=== PATIENT | male | born 1960 | race African-American/Black ===

== ENCOUNTER 2017-06-17 22:41 | Emergency (ER) | payer OTHER, SELFPAY ==
[2017-06-17 23:44] LABS: #Eosinphils 0.1 thou/uL (0.0-0.7); #Lymphocytes 1.7 thou/uL (1.20-3.40); #Monocytes 0.4 thou/uL (0.11-0.59); #Neutrophils 3.1 thou/uL (1.40-6.50); %Basophils 0.7 % (0.0-1.0); %Eosinophils 2.3 % (0.0-10.0); %Lymphocytes 31.8 % (21.0-51.0); %Monocytes 7.6 % (0.0-10.0); %Neutrophils 57.7 % (42.0-75.0); Hemoglobin 13.6 g/dL (14.0-18.0); Mean Corpuscular Hemoglobin 27.8 pg (27.0-31.0); Mean Corpuscular Volume 89.7 fl (80.0-94.0); Mean Platelet Volume 7.6 fL (7.4-10.4); Platelet Count 320 thou/uL (130-400); RBC Distribution Width 13.2 % (11.5-14.5); Red Blood Cell (RBC) Count 4.88 mill/uL (4.70-6.10); White Blood Cell (WBC) Count 5.4 thou/uL (4.8-10.8)
[2017-06-17 23:52] LABS: INR-International Normal Ratio 1.1; Prothrombin Time 14.2 SEC (12.0-14.7)
--- NOTE | 2017-06-17 23:58 | RAD ---
TWO VIEW CHEST: 06/17/17 HISTORY: Cough and shortness of breath. Heart is mildly enlarged. Dual AICD lead device is noted. There is mild vascular engorgement. No foc al infiltrate and no effusion apparent. IMPRESSION: Heart size is mildly enlarged. No acute lung process. POS: [facility]
[2017-06-18 00:14] LABS: CKMB 2.5 ng/mL (0-6.6)
[2017-06-18 00:24] LABS: ALT (SGPT) 33 U/L (8-55); AST (SGOT) 37 U/L (5-34); Albumin 3.5 g/dL (3.5-5.0); Alkaline Phosphatase 65 U/L (40-150); Anion Gap 15 mmol/L (10-20); BUN (Urea Nitrogen) 34 mg/dL (8.4-25.7); Bilirubin, Total 0.5 mg/dL (0.2-1.2); Calc. Creatinine Clearance 0 mL/min (70-130); Calcium 9.3 mg/dL (7.8-10.44); Carbon Dioxide 24 mmol/L (22-29); Chloride 104 mmol/L (98-107); Estimated GFR-MDRD 43; Globulin 3.2 g/dL (2.4-3.5); Glucose 105 mg/dL (70-105); Potassium 3.6 mmol/L (3.5-5.1); Protein, Total 6.7 g/dL (6.0-8.3); Sodium 139 mmol/L (136-145)
[2017-06-18] MEDS ORDERED: Nitroglycerin 0.4 MG TAB (25 Tab Bottle) ONE (00:27)
[2017-06-18] MEDS ORDERED: Furosemide 40 MG/4 ML VIAL ONE (00:27)
[2017-06-18] MEDS ORDERED: hydrALAZINE 20 MG/ML VIAL ONE (02:58)
[2017-06-18] MEDS ORDERED: Nitroglycerin 2% Ointment 1 INCH/1 GM Packet ONE (05:06)
== END 2017-06-18 05:55 | disposition short-term general hospital (02) ==
LOC: ERS 22:41
DX: I11.0 Hypertensive heart disease with heart failure (principal); I50.9 Heart failure, unspecified; Z79.899 Other long term (current) drug therapy
CPT/HCPCS: 71046; 80053; 82553; 83880; 84484; 85025; 85610; 93005; 96374; 96375; J0360; J1940

== ENCOUNTER 2017-07-04 11:00 | Emergency (ER) | payer OTHER ==
[2017-07-04 12:14] LABS: Bacteria/HPF None Seen HPF (None Seen); Bilirubin Negative (Negative); Blood, Urine Large (Negative); Clarity CLOUDY (Clear); Glucose, Urine (Dipstick) Negative (Negative); Hyaline Casts/LPF 0-3 HYALINE CAST LPF (0-3 Hyaline); Leukocyte Moderate (Negative); Nitrite Negative (Negative); Pathc Cast-AUWi Flag 0.14 (0-2.49); Protein, Urine (Dipstick) 100 mg/dL (Neg-Trace); RBC/HPF GREATER THAN 50-TNTC HPF (0-3); Specific Gravity, Urine 1.022 (1.002-1.036); Squamous Epithelial None Seen HPF (0-3)
[2017-07-04] MEDS ORDERED: cefTRIAXone\\ROCEPHIN 1 GM VIAL IM ONE (13:30)
[2017-07-04] MEDS ORDERED: Lidocaine 1% PF 5 ML VIAL ONE (13:33)
== END 2017-07-04 14:06 | disposition home or self-care (01) ==
LOC: ERS 11:00
DX: N39.0 Urinary tract infection, site not specified (principal); I11.0 Hypertensive heart disease with heart failure; I50.9 Heart failure, unspecified; Z79.899 Other long term (current) drug therapy
CPT/HCPCS: 81003; 81015; 87077; 87086; 87186; 96372; J0696; J2001

== ENCOUNTER 2017-09-21 10:46 | Emergency (ER) | payer OTHER ==
[2017-09-21 11:25] LABS: #Basophils 0.1 thou/uL (0.0-0.2); #Eosinphils 0.1 thou/uL (0.0-0.7); #Lymphocytes 1.5 thou/uL (1.20-3.40); #Monocytes 0.4 thou/uL (0.11-0.59); #Neutrophils 2.5 thou/uL (1.40-6.50); %Basophils 1.4 % (0.0-1.0); %Eosinophils 1.9 % (0.0-10.0); %Monocytes 9.3 % (0.0-10.0); %Neutrophils 54.5 % (42.0-75.0); Hemoglobin 15.1 g/dL (14.0-18.0); Mean Corpuscular HGB CONC 34.6 g/dL (32.0-36.0); Mean Corpuscular Hemoglobin 29.6 pg (27.0-31.0); Mean Corpuscular Volume 85.6 fl (80.0-94.0); Mean Platelet Volume 8.3 fL (7.4-10.4); Platelet Count 212 thou/uL (130-400); White Blood Cell (WBC) Count 4.7 thou/uL (4.8-10.8)
--- NOTE | 2017-09-21 11:44 | RAD ---
CHEST: Date: 09/21/17 PROVIDED CLINICAL HISTORY: Possible defibrillator firing and chest pain. FINDINGS: Comparison with 06/17/17. Cardiac silhouette remains enlarged. Left subclavian cardiac pacing device is again noted with lead t ips in expected locations of RA and RV. No focal consolidation, pleural fluid, or pneumothorax appare nt. IMPRESSION: Cardiomegaly without evidence for an acute cardiopulmonary process. POS: [facility]
[2017-09-21 11:57] LABS: ALT (SGPT) 15 U/L (8-55); AST (SGOT) 20 U/L (5-34); Albumin 3.8 g/dL (3.5-5.0); Alkaline Phosphatase 41 U/L (40-150); Anion Gap 13 mmol/L (10-20); BUN (Urea Nitrogen) 28 mg/dL (8.4-25.7); Bilirubin, Total 0.7 mg/dL (0.2-1.2); CK (CPK) 161 U/L (30-200); Calc. Creatinine Clearance 0 mL/min (70-130); Calcium 9.1 mg/dL (7.8-10.44); Carbon Dioxide 20 mmol/L (22-29); Chloride 106 mmol/L (98-107); Estimated GFR-MDRD 71; Globulin 3.5 g/dL (2.4-3.5); Glucose 106 mg/dL (70-105); Potassium 4.3 mmol/L (3.5-5.1); Protein, Total 7.3 g/dL (6.0-8.3); Sodium 135 mmol/L (136-145)
[2017-09-21 11:59] LABS: CKMB 3.3 ng/mL (0-6.6); Troponin I 0.028 ng/mL (< 0.028)
[2017-09-21] MEDS ORDERED: Lisinopril 10 MG TAB ONE (12:49)
[2017-09-21 15:53] LABS: CKMB 3.8 ng/mL (0-6.6); Troponin I 0.045 ng/mL (< 0.028)
== END 2017-09-21 16:56 | disposition short-term general hospital (02) ==
LOC: ERS 10:46
DX: I47.2 Ventricular tachycardia (principal); I11.0 Hypertensive heart disease with heart failure; I50.9 Heart failure, unspecified; Z79.899 Other long term (current) drug therapy
CPT/HCPCS: 36415; 71045; 80053; 82550; 82553; 84484; 85025; 93005

== ENCOUNTER 2018-06-11 13:01 | Emergency (ER) | payer OTHER, SELFPAY ==
[2018-06-11] MEDS ORDERED: Lidocaine 1% w/Epinephrine 1:100K 20 ML VIAL ONE (13:41)
== END 2018-06-11 14:05 | disposition home or self-care (01) ==
LOC: ERS 13:01
DX: L72.3 Sebaceous cyst (principal); I11.0 Hypertensive heart disease with heart failure; I50.9 Heart failure, unspecified
CPT/HCPCS: 10061; J2001

== ENCOUNTER 2019-05-07 06:54 | Inpatient (IN) | payer OTHER ==
[2019-05-07 07:23] LABS: #Eosinphils 0.1 thou/uL (0.0-0.7); #Lymphocytes 0.9 thou/uL (1.20-3.40); #Monocytes 0.4 thou/uL (0.11-0.59); #Neutrophils 2.7 thou/uL (1.40-6.50); %Basophils 0.5 % (0.0-1.0); %Eosinophils 1.3 % (0.0-10.0); %Lymphocytes 22.7 % (21.0-51.0); %Monocytes 9.2 % (0.0-10.0); %Neutrophils 66.3 % (42.0-75.0); Hemoglobin 13.2 g/dL (14.0-18.0); Mean Corpuscular HGB CONC 31.6 g/dL (32.0-36.0); Mean Corpuscular Hemoglobin 27.6 pg (27.0-31.0); Mean Corpuscular Volume 87.3 fL (78.0-98.0); Mean Platelet Volume 8.2 fL (7.4-10.4); Platelet Count 284 thou/uL (130-400); RBC Distribution Width 14.3 % (11.5-14.5); Red Blood Cell (RBC) Count 4.78 mill/uL (4.70-6.10); White Blood Cell (WBC) Count 4.1 thou/uL (4.8-10.8)
[2019-05-07] MEDS ORDERED: Nitroglycerin 0.4 MG TAB 1 EACH ONE ×2 (07:32→09:31)
[2019-05-07 07:38] LABS: ALT (SGPT) 22 U/L (8-55); AST (SGOT) 24 U/L (5-34); Albumin 3.6 g/dL (3.5-5.0); Alkaline Phosphatase 54 U/L (40-110); Anion Gap 13 mmol/L (10-20); BUN (Urea Nitrogen) 31 mg/dL (8.4-25.7); Bilirubin, Total 0.9 mg/dL (0.2-1.2); Calc. Creatinine Clearance 0 mL/min (70-130); Carbon Dioxide 23 mmol/L (22-29); Chloride 105 mmol/L (98-107); Estimated GFR-MDRD 47; Globulin 3.1 g/dL (2.4-3.5); Glucose 132 mg/dL (70-105); Potassium 4.2 mmol/L (3.5-5.1); Protein, Total 6.7 g/dL (6.0-8.3); Sodium 137 mmol/L (136-145)
--- NOTE | 2019-05-07 07:46 | RAD ---
Portable frontal chest radiograph: 05/07/2019 COMPARISON: 09/21/2017 HISTORY: Chest pain FINDINGS: Stable prominence of the cardiac silhouette. Stable multilead AICD. No pneumothorax or pleu ral fluid. No focal consolidation or alveolar edema. IMPRESSION: Prominent cardiac silhouette with stable transvenous AICD. No focal consolidation or alve olar edema.
[2019-05-07 07:58] LABS: CKMB 5.6 ng/mL (0-6.6)
--- NOTE | 2019-05-07 09:04 | CT ---
Exam: CT angiogram chest with 3-D rendering: CT angiogram abdomen with 3-D rendering: HISTORY: Chest pain FINDINGS: There are some scattered calcific atherosclerotic plaques involving the aorta and great vessels of th e chest and abdomen. No convincing CT evidence for acute pulmonary embolism involving the main pulmonary artery segments. No evidence for thoracic aortic aneurysm or dissection. Small mediastinal lymph nodes up to 1.3 cm in short axis. No evidence for acute pulmonary parenchymal process. Generalized cardiomegaly. Multiple gallstones within the gallbladder. There are some calcified plaques at the origins of the re nal arteries bilaterally as well as the celiac artery without evidence for hemodynamically significant stenosis using [place] Criteria. No evidence for bowel aortic aneurysm or dissection. Smal l retroperitoneal lymph nodes without adenopathy. IMPRESSION: No evidence for aortic aneurysm or dissection. No evidence for main pulmonary artery thrombosis. Scat tered atherosclerotic calcific plaques. Multiple gallstones. Small lymph nodes in the mediastinum and also in the retroperitoneum.
[2019-05-07] MEDS ORDERED: Enoxaparin Sodium 100 MG/ML SYRINGE ONE (09:32)
[2019-05-07 11:49] LABS: Troponin I 1.111 ng/mL (< 0.028)
[2019-05-07] MEDS ORDERED: Ondansetron ODT 4 MG TAB PO PRN (12:25)
[2019-05-07] MEDS ORDERED: Acetaminophen 325 MG TAB PO PRN (12:25)
[2019-05-07] MEDS ORDERED: Bisacodyl 5 MG TAB PO PRN (12:25)
[2019-05-07] MEDS ORDERED: Calcium Carbonate 500 MG ChewTAB PO PRN (12:25)
[2019-05-07] MEDS ORDERED: HYDROcodone/Acetaminophen 5/325 mg Tablet PO PRN (12:25)
[2019-05-07] MEDS ORDERED: Ondansetron PF 4 MG/2 ML Vial IVP PRN (12:25)
[2019-05-07] MEDS ORDERED: Benzonatate 100 MG CAP PO PRN (12:27)
[2019-05-07] MEDS ORDERED: diphenhydrAMINE 25 MG CAP PO PRN (12:27)
[2019-05-07] MEDS ORDERED: Labetalol HCl 100 MG/20 ML VIAL SLOW IVP PRN (12:27)
[2019-05-07] MEDS ORDERED: Morphine 2 MG/ML SYRINGE SLOW IVP PRN (12:27)
[2019-05-07] MEDS ORDERED: Docusate 100 MG CAP PO PRN (12:27)
[2019-05-07] MEDS ORDERED: Melatonin 3 MG TAB PO PRN (12:27)
[2019-05-07] MEDS ORDERED: Sodium Chloride 0.9% 1,000 ML IV SCH ×2 (12:30→17:00)
--- NOTE | 2019-05-07 14:03 | PDOC.HHP ---
Hospitalist HPI - History of Present Illness Chest pain History of Present Illness: Mr. Javed is a pleasant 59-year-old gentleman with past medical history of coronary artery disease with stent placement, congestive heart failure, AICD, hypertension, and hyperlipidemia who presents with chest pain. Patient has been it is normal state of good health up until this morning when he had abrupt onset of midsternal chest pain. With sublingual nitroglycerin his chest pain has improved. Patient found have elevated cardiac enzymes on admission and diagnosed with non-ST segment myocardial infarction on admission. Patient with acute kidney injury with creatinine of 1.8 with a baseline of 1.2. Patient admitted to medical unit telemetry for further evaluation. Cardiology consultation requested for further recommendations. Hospitalist ROS - Review of Systems All other systems reviewed; all pertinent +/- noted in HPI/Subj Hospitalist History - Past Medical History Source: patient, family, old records Cardiac: reports: CAD, CHF, HTN - Family History Family History: reports: Other - Social History Smoking Status: Unknown if ever smoked Alcohol: reports: None Drugs: reports: none Living Situation: With Family Domestic Violence: Negative Activity level: independent ambulation - Exam General Appearance: NAD, awake alert Eye: PERRL, anicteric sclera ENT: normocephalic atraumatic, moist mucosa Neck: supple, no lymphadenopathy Heart: no murmur, no gallops, no rubs Respiratory: CTAB, no wheezes, no rales, no ronchi, normal chest expansion, no tachypnea Gastrointestinal: soft, non-tender, no guarding, no rigidity Extremities: no clubbing, no edema Skin: no lesions, no rashes Neurological: cranial nerve grossly intact, no weakness, no focal deficits Musculoskeletal: normal tone, normal strength Psychiatric: normal affect, normal behavior, A&O x 3 Hospitalist Results - Labs Result Diagrams: 05/07/19 07:08 05/07/19 07:08 Lab results: WBC 4.1 thou/uL (4.8-10.8) L 05/07/19 07:08 Hgb 13.2 g/dL (14.0-18.0) L 05/07/19 07:08 Hct 41.7 % (42.0-52.0) L 05/07/19 07:08 MCV 87.3 fL (78.0-98.0) 05/07/19 07:08 Plt Count 284 thou/uL (130-400) 05/07/19 07:08 Neutrophils % 66.3 % (42.0-75.0) 05/07/19 07:08 Sodium 137 mmol/L (136-145) 05/07/19 07:08 Potassium 4.2 mmol/L (3.5-5.1) 05/07/19 07:08 Chloride 105 mmol/L (98-107) 05/07/19 07:08 Carbon Dioxide 23 mmol/L (22-29) 05/07/19 07:08 BUN 31 mg/dL (8.4-25.7) H 05/07/19 07:08 Creatinine 1.81 mg/dL (0.7-1.3) H 05/07/19 07:08 Glucose 132 mg/dL (70-105) H 05/07/19 07:08 Calcium 9.0 mg/dL (7.8-10.44) 05/07/19 07:08 Total Bilirubin 0.9 mg/dL (0.2-1.2) 05/07/19 07:08 AST 24 U/L (5-34) 05/07/19 07:08 ALT 22 U/L (8-55) 05/07/19 07:08 Alkaline Phosphatase 54 U/L (40-110) 05/07/19 07:08 CK-MB (CK-2) 5.6 ng/mL (0-6.6) 05/07/19 07:08 Troponin I 1.111 ng/mL (< 0.028) H* 05/07/19 11:08 Serum Total Protein 6.7 g/dL (6.0-8.3) 05/07/19 07:08 Albumin 3.6 g/dL (3.5-5.0) 05/07/19 07:08 - Radiology Interpretation CT scan - chest Status: image reviewed by mn Chest x-ray Status: image reviewed by mn Hospitalist H&P A/P - Problem (1) NSTEMI (non-ST elevated myocardial infarction) Code(s): I21.4 - NON-ST ELEVATION (NSTEMI) MYOCARDIAL INFARCTION Status: Acute (2) Chest pain Code(s): R07.9 - CHEST PAIN, UNSPECIFIED Status: Acute (3) CAD (coronary artery disease) Code(s): I25.10 - ATHSCL HEART DISEASE OF [place] CORONARY ARTERY W/O ANG PCTRS Status: Chronic (4) CHF (congestive heart failure) Code(s): I50.9 - HEART FAILURE, UNSPECIFIED Status: Chronic Qualifiers: Qualified Code(s): I50.23 - Acute on chronic systolic (congestive) heart failure (5) HTN (hypertension) Code(s): I10 - ESSENTIAL (PRIMARY) HYPERTENSION Status: Chronic - Plan Plan: Plan: Admit to medical unit with telemetry cardiology consultation, recommendations appreciated anticoagulation, full dose morphine, oxygen, nitrates, aspirin blood pressure control blood sugar control continue home medications is able IV fluid resuscitation in the setting of acute kidney injury who may require cardiac catheterization G.I. prophylaxis DVT prophylaxis
[2019-05-07] MEDS ORDERED: Iopamidol-370 76% 500 ML 1 ML ONE (14:20)
[2019-05-07 15:11] LABS: Troponin I 5.113 ng/mL (< 0.028)
[2019-05-07 15:26] VITALS: BMI 32.0
[2019-05-07 17:59] LABS: Troponin I 12.104 ng/mL (< 0.028)
[2019-05-07] MEDS ORDERED: Communication Order-Pharmacy FS SCH (18:45)
[2019-05-07] MEDS ORDERED: Nitroglycerin 2% Ointment 1 INCH/1 GM Packet TOP SCH (18:45)
[2019-05-07] MEDS: Carvedilol 6.25 MG TAB PO SCH (20:53)
[2019-05-07] MEDS: Famotidine 20 MG TAB PO SCH (20:54)
[2019-05-07] MEDS: Heparin 10,000 UNITS/ 10 ML VIAL SLOW IVP SCH (23:49)
[2019-05-07] MEDS: Heparin 25,000 units/D5W 500 ML IV SCH (23:50)
--- NOTE | 2019-05-08 00:50 | CON ---
DATE OF CONSULTATION: HISTORY OF PRESENT ILLNESS: Mr. Margarito alvarado is a 59-year-old black male, patient usually followed at the [facility], but has been seen by Dr. Adames during his hospitalizations here. He has history of heart failure. Apparently in 2010, [facility]. He was initially seen by Dr. Adames in June 2015 when he developed fever, cough and shortness of breath. He had T-wave inversion V4 through V6. Echocardiogram revealed ejection fraction of 25 % to 30%. A LifeVest was recommended. However, due to having [place] insurance, this could not be set up. At that time, he went to see his [facility] physician. Ultimately, he had a dual-chamber pacemaker placed in [place]. He is uncertain of the type of defibrillator. He was again admitted in April 2016 with SOB but no ches pain. He had been on lisinopril and Lasix. He was placed on nitroglycerin drip and BiPAP was used. He was diuresed. He has not been seen by the marketing rotation associate here since that time. He now presents to the emergency room with chest pain. He states that this morning at approximately 5:30 a.m. at work he had onset of chest burning. He had nausea and vomiting. His came and picked him up. He went home for a while and then he came to the emergency room. He was given sublingual nitroglycerin x3 and Lovenox 1 mg/kg. His pain resolved. He had been admitted. Total duration of his pain was 7 or 8 hours. At present time, he is pain free and denies any shortness of breath. PAST MEDICAL HISTORY: Cardiomyopathy as noted above with ejection fraction of 25%, hypertension. MEDICATIONS: 1. Aspirin 325 daily. 2. Carvedilol 12.5 b.i.d. 3. Furosemide 20 daily. 4. Lisinopril 2.5 daily. ALLERGIES: NONE. OPERATIONS: ICD placement. SOCIAL HISTORY: He does not smoke or drink. REVIEW OF SYSTEMS: Unremarkable except as noted above. PHYSICAL EXAMINATION: VITAL SIGNS: 158/90, pulse of 71. HEENT: PERRL. NECK: Supple. CHEST: Clear. CARDIAC: S1 and S2 normal without any S3, S4, or murmurs. Carotid upstroke is normal without bruits. ABDOMEN: Normal bowel sounds without tenderness. EXTREMITIES: Revealed no clubbing, cyanosis, or edema. NEUROLOGIC: Grossly intact. SKIN: Warm and dry. IMAGIN. Chest x-ray revealed cardiomegaly. No significant abnormality. 2. CT dissection protocol revealed no evidence of aortic aneurysm or dissection. There is no evidence for pulmonary emboli. 3. EKG reveals atrial pacing with left axis deviation and inverted T-wave at V5 and V6, which apparently is an old finding. LABORATORY DATA: Hemoglobin 13.2, hematocrit 41.7, white count 4100, platelets 284,000. Sodium 137, potassium 4.2, chloride 108, carbon dioxide 23, BUN 31, creatinine 1.81. Troponin I is up to 5.113. It is of note in June 2015, he had an LDL of 111. IMPRESSION: 1. [id number]-[id number] myocardial infarction. Apparently in 2010, he had normal coronary artery catheterization. 2. Nonischemic cardiomyopathy with last ejection fraction of 25%. 3. Status post dual-chamber implantable cardioverter-defibrillator. 4. Hypertension. 5. Hypercholesterolemia. 6. Acute kidney injury. PLAN: The patient will have topical nitrates added. Once he is 12 hours out from his Lovenox, he will be given heparin bolus and started on heparin protocol. His renal function will be watched closely and may require some mild IV hydration. We discussed that he will eventually need to undergo cardiac catheterization. Risks of this were discussed including , myocardial infarction, dye reaction, vascular injury, CVA, transfusion, limb loss, renal loss, etc. Also risk of stent placement was discussed including , myocardial infarction, emergent CABG, restenosis, stent thrombosis, vessel perforation, etc. He has no history of gastrointestinal bleeding, stroke, and has no upcoming surgeries and consideration should be given to a drug-eluting stent, if needed. Job ID: [id number] [facility]PITALNinfa
[2019-05-08 04:21] LABS: #Eosinphils 0.1 thou/uL (0.0-0.7); #Lymphocytes 1.4 thou/uL (1.20-3.40); #Monocytes 0.5 thou/uL (0.11-0.59); #Neutrophils 2.9 thou/uL (1.40-6.50); %Basophils 0.8 % (0.0-1.0); %Eosinophils 2.1 % (0.0-10.0); %Lymphocytes 28.3 % (21.0-51.0); %Monocytes 10.6 % (0.0-10.0); %Neutrophils 58.2 % (42.0-75.0); Hemoglobin 12.5 g/dL (14.0-18.0); Mean Corpuscular Volume 87.7 fL (78.0-98.0); Mean Platelet Volume 9.5 fL (7.4-10.4); Platelet Count 270 thou/uL (130-400); RBC Distribution Width 14.5 % (11.5-14.5); Red Blood Cell (RBC) Count 4.46 mill/uL (4.70-6.10); White Blood Cell (WBC) Count 4.9 thou/uL (4.8-10.8)
[2019-05-08 04:31] LABS: Anion Gap 12 mmol/L (10-20); BUN (Urea Nitrogen) 27 mg/dL (8.4-25.7); Calc. Creatinine Clearance 74 mL/min (70-130); Calcium 8.5 mg/dL (7.8-10.44); Carbon Dioxide 21 mmol/L (22-29); Cardiac Risk 2.9 (Less than 4.5); Chloride 108 mmol/L (98-107); Cholesterol 145 mg/dl (< 200 Desired); Estimated GFR-MDRD 62; Glucose 107 mg/dL (70-105); HDL Cholesterol 50 mg/dL (>60 Neg Risk); LDL Cholesterol, Calculated 85 mg/dL; Potassium 4.2 mmol/L (3.5-5.1); Sodium 137 mmol/L (136-145); Triglycerides 51 mg/dL (Less than 150)
[2019-05-08] MEDS: Nitroglycerin 2% Ointment 1 INCH/1 GM Packet TOP SCH ×3 (04:46→17:42)
[2019-05-08 07:18] LABS: PTT Greater than 250.0 SEC (22.9-36.1)
[2019-05-08] MEDS: Carvedilol 6.25 MG TAB PO SCH ×2 (09:34→20:26)
[2019-05-08] MEDS: Aspirin 325 MG TAB PO SCH (09:34)
[2019-05-08] MEDS: Famotidine 20 MG TAB PO SCH ×2 (09:34→20:28)
[2019-05-08 10:21] LABS: PTT 115.7 SEC (22.9-36.1)
--- NOTE | 2019-05-08 14:42 | PDOC.HOSPP ---
- Subjective Subjective: Seen and examined on medical unit with telemetry. On heparin drip patient's chest pain has resolved. He is standing up getting ready to shave. He is breathing comfortably on room air. He has no acute complaints at this time. With IV fluid resuscitation his renal function has improved. - Objective Vital Signs & Weight: Vital Signs (12 hours) Temp Pulse Resp BP BP Pulse Ox 05/08/19 12:07 97.8 F 64 14 141/82 H 100 05/08/19 07:57 98.7 F 60 12 157/95 H 100 05/08/19 03:11 97.4 F L 61 16 138/89 95 Weight Weight 204 lb 4.8 oz I&O: 05/07/19 05/08/19 05/09/19 06:59 06:59 06:59 Intake Total 340 Output Total 300 Balance 40 Result Diagrams: 05/08/19 03:22 05/08/19 03:22 Radiology Reviewed by me: Yes Hospitalist ROS - Review of Systems All other systems reviewed; all pertinent +/- noted in HPI/Subj - Medication Medications: Active Medications Generic Name Dose Route Start Last Admin Trade Name Freq PRN Reason Stop Dose Admin Aspirin 325 mg 05/08/19 09:00 05/08/19 09:34 Aspirin PO 325 mg DAILY SAQIB Administration Carvedilol 12.5 mg 05/07/19 21:00 05/08/19 09:34 Coreg PO 12.5 mg BID SAQIB Administration Famotidine 20 mg 05/07/19 21:00 05/08/19 09:34 Pepcid PO 20 mg BID SAQIB Administration Heparin Sodium (Porcine) 0 units 05/07/19 21:00 05/07/19 23:49 Heparin 1,000 Units/Ml (10 Ml) SLOW IVP 4,000 unit ASDIR SAQIB Administration Protocol Heparin Sodium/Dextrose 500 mls @ 0 mls/hr 05/07/19 18:45 05/07/19 23:50 Heparin 25,000 Units/D5w 500 Ml IV 500 mls INF SAQIB Administration Protocol As Directed Nitroglycerin 1 inch 05/08/19 02:00 05/08/19 09:35 Nitro-Bid 2% Ointment TOP 1 inch 0200,1000,1800 SAQIB Administration - Exam General Appearance: NAD, awake alert Eye: anicteric sclera ENT: normocephalic atraumatic, moist mucosa Neck: supple, symmetric, no lymphadenopathy Heart: no murmur, no gallops, no rubs Respiratory: CTAB, no wheezes, no rales, no ronchi Gastrointestinal: soft, non-tender, no guarding, no rigidity Extremities: no edema Skin: no lesions, no rashes Neurological: cranial nerve grossly intact, no focal deficits Musculoskeletal: generalized weakness Psychiatric: normal affect, A&O x 3 Hosp A/P (1) NSTEMI (non-ST elevated myocardial infarction) Code(s): I21.4 - NON-ST ELEVATION (NSTEMI) MYOCARDIAL INFARCTION Status: Acute (2) Chest pain Code(s): R07.9 - CHEST PAIN, UNSPECIFIED Status: Acute (3) CAD (coronary artery disease) Code(s): I25.10 - ATHSCL HEART DISEASE OF [place] CORONARY ARTERY W/O ANG PCTRS Status: Chronic (4) CHF (congestive heart failure) Code(s): I50.9 - HEART FAILURE, UNSPECIFIED Status: Chronic Qualifiers: Qualified Code(s): I50.23 - Acute on chronic systolic (congestive) heart failure (5) HTN (hypertension) Code(s): I10 - ESSENTIAL (PRIMARY) HYPERTENSION Status: Chronic - Plan Plan: medical unit with telemetry cardiology consultation, recommendations appreciated may require cardiac catheterization for definitive diagnosis and treatment, planned for Friday heparin drip morphine, oxygen, nitrates, aspirin blood pressure control blood sugar control continue home medications as able with IV fluid resuscitation acute kidney injury has improved G.I. prophylaxis DVT prophylaxis
[2019-05-08] MEDS: Heparin 10,000 UNITS/ 10 ML VIAL SLOW IVP SCH (17:43)
[2019-05-09] MEDS: Nitroglycerin 2% Ointment 1 INCH/1 GM Packet TOP SCH ×3 (02:55→18:21)
[2019-05-09 05:07] LABS: Anion Gap 13 mmol/L (10-20); BUN (Urea Nitrogen) 25 mg/dL (8.4-25.7); Calc. Creatinine Clearance 74 mL/min (70-130); Calcium 8.5 mg/dL (7.8-10.44); Carbon Dioxide 22 mmol/L (22-29); Chloride 106 mmol/L (98-107); Estimated GFR-MDRD 63; Glucose 98 mg/dL (70-105); Potassium 4.6 mmol/L (3.5-5.1); Sodium 136 mmol/L (136-145)
[2019-05-09] MEDS: Famotidine 20 MG TAB PO SCH ×2 (08:44→21:08)
[2019-05-09] MEDS: Aspirin 325 MG TAB PO SCH (08:44)
[2019-05-09] MEDS: Carvedilol 6.25 MG TAB PO SCH ×3 (08:44→21:08)
--- NOTE | 2019-05-09 12:56 | PDOC.HOSPP ---
- Subjective Subjective: Seen and examined. Breathing comfortably on room air. No pain since starting anticoagulation. He is planned for cardiac catheterization tomorrow. Time was given for questions, all answered in detail. - Objective Vital Signs & Weight: Vital Signs (12 hours) Temp Pulse Resp BP BP Pulse Ox 05/09/19 11:23 97.7 F 63 15 140/88 98 05/09/19 08:38 98.7 F 70 18 160/98 H 98 05/09/19 04:10 98.3 F 68 14 156/99 H 94 L Weight Weight 209 lb 14.4 oz I&O: 05/08/19 05/09/19 05/10/19 06:59 06:59 06:59 Intake Total 340 1320 Output Total 300 325 Balance 40 995 Result Diagrams: 05/08/19 03:22 05/09/19 04:16 Radiology Reviewed by me: Yes Hospitalist ROS - Review of Systems All other systems reviewed; all pertinent +/- noted in HPI/Subj - Medication Medications: Active Medications Generic Name Dose Route Start Last Admin Trade Name Tannerq PRN Reason Stop Dose Admin Aspirin 325 mg 05/08/19 09:00 05/09/19 08:44 Aspirin PO 325 mg DAILY SAQIB Administration Famotidine 20 mg 05/07/19 21:00 05/09/19 08:44 Pepcid PO 20 mg BID SAQIB Administration Heparin Sodium (Porcine) 0 units 05/07/19 21:00 05/08/19 17:43 Heparin 1,000 Units/Ml (10 Ml) SLOW IVP 2,778 unit ASDIR SAQIB Administration Protocol Heparin Sodium/Dextrose 500 mls @ 0 mls/hr 05/07/19 18:45 05/07/19 23:50 Heparin 25,000 Units/D5w 500 Ml IV 500 mls INF SAQIB Administration Protocol As Directed Nitroglycerin 1 inch 05/08/19 02:00 05/09/19 10:44 Nitro-Bid 2% Ointment TOP 1 inch 0200,1000,1800 [facility] Administration - Exam General Appearance: NAD, awake alert Eye: anicteric sclera ENT: normocephalic atraumatic, moist mucosa Neck: supple, symmetric Heart: no murmur, no gallops, no rubs Respiratory: CTAB, no wheezes, no rales, no ronchi, normal chest expansion, no tachypnea Gastrointestinal: soft, non-tender, no guarding, no rigidity Extremities: no edema Skin: no lesions, no rashes Neurological: cranial nerve grossly intact, no focal deficits Musculoskeletal: generalized weakness Psychiatric: normal affect, A&O x 3 Hosp A/P (1) NSTEMI (non-ST elevated myocardial infarction) Code(s): I21.4 - NON-ST ELEVATION (NSTEMI) MYOCARDIAL INFARCTION Status: Acute (2) Chest pain Code(s): R07.9 - CHEST PAIN, UNSPECIFIED Status: Acute (3) CAD (coronary artery disease) Code(s): I25.10 - ATHSCL HEART DISEASE OF [place] CORONARY ARTERY W/O ANG PCTRS Status: Chronic (4) CHF (congestive heart failure) Code(s): I50.9 - HEART FAILURE, UNSPECIFIED Status: Chronic Qualifiers: Qualified Code(s): I50.23 - Acute on chronic systolic (congestive) heart failure (5) HTN (hypertension) Code(s): I10 - ESSENTIAL (PRIMARY) HYPERTENSION Status: Chronic - Plan Plan: medical unit with telemetry cardiology consultation, recommendations appreciated may require cardiac catheterization for definitive diagnosis and treatment, planned for Friday heparin drip morphine, oxygen, nitrates, aspirin blood pressure control blood sugar control continue home medications as able with IV fluid resuscitation acute kidney injury has improved G.I. prophylaxis DVT prophylaxis Full code
[2019-05-09] MEDS: Heparin 10,000 UNITS/ 10 ML VIAL SLOW IVP SCH (13:25)
[2019-05-09] MEDS: Heparin 25,000 units/D5W 500 ML IV SCH (22:22)
[2019-05-10] MEDS: Nitroglycerin 2% Ointment 1 INCH/1 GM Packet TOP SCH ×3 (05:07→18:11)
[2019-05-10] MEDS: Sodium Chloride 0.9% 1,000 ML IV SCH ×2 (05:07→21:21)
[2019-05-10 05:12] LABS: Anion Gap 12 mmol/L (10-20); BUN (Urea Nitrogen) 29 mg/dL (8.4-25.7); Calc. Creatinine Clearance 68 mL/min (70-130); Calcium 9.1 mg/dL (7.8-10.44); Carbon Dioxide 21 mmol/L (22-29); Chloride 108 mmol/L (98-107); Estimated GFR-MDRD 55; Glucose 100 mg/dL (70-105); Potassium 4.1 mmol/L (3.5-5.1); Sodium 137 mmol/L (136-145)
[2019-05-10] MEDS: Heparin 10,000 UNITS/ 10 ML VIAL SLOW IVP SCH (06:31)
[2019-05-10] MEDS: Aspirin 325 MG TAB PO SCH (07:42)
[2019-05-10] MEDS: Carvedilol 6.25 MG TAB PO SCH ×3 (07:42→21:20)
[2019-05-10] MEDS ORDERED: Lidocaine 1% (PF) 30 ML VIAL ONE (08:31)
[2019-05-10] MEDS ORDERED: Heparin (Artline) 1,000 ML ONE (08:31)
[2019-05-10] MEDS ORDERED: Nitroglycerin 4.9 GM Bottle ONE (08:44)
[2019-05-10] MEDS ORDERED: Verapamil 5 MG/2 ML VIAL ONE (08:45)
[2019-05-10] MEDS ORDERED: Nitroglycerin 100MG/250ML BOT 250 ML ONE (08:45)
[2019-05-10] MEDS ORDERED: Heparin 10,000 UNITS/1 ML VIAL ONE (08:45)
[2019-05-10] MEDS ORDERED: Midazolam HCl 2 mg/2 ml Vial ONE (09:21)
[2019-05-10] MEDS ORDERED: Sodium Chloride 0.9% 200 ML IV PRN (10:25)
[2019-05-10] MEDS ORDERED: Nitroglycerin 0.4 MG TAB (25 Tab Bottle) SL PRN (10:25)
[2019-05-10] MEDS ORDERED: Acetaminophen/Codeine 30-300mg Tablet PO PRN ×2 (10:25)
[2019-05-10] MEDS: Famotidine 20 MG TAB PO SCH ×2 (10:56→21:20)
[2019-05-10] MEDS ORDERED: Iopamidol 370 76% 100 ML VIAL ONE (11:59)
--- NOTE | 2019-05-10 19:56 | PDOC.HOSPP ---
- Subjective Encounter Date: 05/10/19 Encounter Time: 10:00 Subjective: Pt seen for followup re: cardiomyopathy. Feels well, no complaints. - Objective Vital Signs & Weight: Vital Signs (12 hours) Temp Pulse Resp BP BP BP Pulse Ox 05/10/19 17:35 144/92 H 05/10/19 16:07 97.5 F L 67 21 H 152/105 H 97 05/10/19 13:39 98.0 F 61 16 154/81 H 100 05/10/19 10:11 98.4 F 64 18 144/96 H 97 Weight Weight 209 lb 14.4 oz I&O: 05/09/19 05/10/19 05/11/19 06:59 06:59 06:59 Intake Total 1320 1200 Output Total 325 475 Balance 995 725 Result Diagrams: 05/08/19 03:22 05/10/19 03:59 Additional Labs: Labs and MARs reviewed by ga Hospitalist ROS - Review of Systems Cardiovascular: denies: chest pain, palpitations, orthopnea, paroxysmal noc. dyspnea, edema, light headedness Gastrointestinal: denies: nausea, vomiting, abdominal pain, diarrhea, constipation, melena, hematochezia - Medication Medications: Active Medications Generic Name Dose Route Start Last Admin Trade Name Freq PRN Reason Stop Dose Admin Aspirin 325 mg 05/08/19 09:00 05/10/19 07:42 Aspirin PO 325 mg DAILY SAQIB Administration Carvedilol 12.5 mg 05/09/19 15:00 05/10/19 14:03 Coreg PO 12.5 mg TID SAQIB Administration Famotidine 20 mg 05/07/19 21:00 05/10/19 10:56 Pepcid PO 20 mg BID SAQIB Administration Heparin Sodium (Porcine) 0 units 05/07/19 21:00 05/10/19 06:31 Heparin 1,000 Units/Ml (10 Ml) SLOW IVP 2,778 unit ASDIR SAQIB Administration Protocol Sodium Chloride 1,000 mls @ 75 mls/hr 05/10/19 06:00 05/10/19 05:07 Normal Saline 0.9% IV 1,000 mls .[id number] SAQIB Administration Heparin Sodium/Dextrose 500 mls @ 0 mls/hr 05/07/19 18:45 05/09/19 22:22 Heparin 25,000 Units/D5w 500 Ml IV 500 mls INF SAQIB Administration Protocol As Directed Nitroglycerin 1 inch 05/08/19 02:00 05/10/19 18:11 Nitro-Bid 2% Ointment TOP 1 inch 0200,1000,1800 SAQIB Administration - Exam General - other findings: Obese Eye: anicteric sclera ENT: moist mucosa Neck: supple, no thyromegaly Heart: RRR Respiratory: CTAB Gastrointestinal: soft, non-tender Extremities: no cyanosis Psychiatric: normal affect, normal behavior Hosp A/P - Plan - Assessment: (1) Nonischemic cardiomyopathy Status: Acute (2) Chest pain Code(s): R07.9 - CHEST PAIN, UNSPECIFIED Status: Acute (3) CAD (coronary artery disease) Code(s): I25.10 - ATHSCL HEART DISEASE OF [place] CORONARY ARTERY W/O ANG PCTRS Status: Chronic (4) CHF (congestive heart failure) Code(s): I50.9 - HEART FAILURE, UNSPECIFIED Status: Chronic Qualifiers: Qualified Code(s): I50.23 - Acute on chronic systolic (congestive) heart failure (5) HTN (hypertension) Code(s): I10 - ESSENTIAL (PRIMARY) HYPERTENSION Status: Chronic (6) NSTEMI (non-ST elevated myocardial infarction) Code(s): I21.4 - NON-ST ELEVATION (NSTEMI) MYOCARDIAL INFARCTION Status: Ruled out - Plan: Normal coronaries on cath. Continue beta adarsh. No ACEI/ARB due to renal failure. Coreg increased to TID.
[2019-05-11] MEDS ORDERED: Carvedilol 25 MG TAB PO SCH ×2 (00:30→09:00)
[2019-05-11] MEDS: Nitroglycerin 2% Ointment 1 INCH/1 GM Packet TOP SCH ×2 (01:58→09:06)
--- NOTE | 2019-05-11 02:07 | CON ---
DATE OF CONSULTATION: 05/11/2019 This is from an advanced heart failure heart transplant consultation service. This consult was requested by Dr. Milner for potential evaluation for left ventricular assist device or heart transplant. Mr. Margarito Javed, 59-year-old gentleman, heart failure with reduced ejection fraction was admitted for chest pain, but then found to be in heart failure exacerbation. 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 In 2009, he was able to walk without limitation. He said that he began a slow decline between 2009 and 2011. In 2011 that culminated with chest pain, shortness of breath, and admission to the hospital. Apparently, he was transferred to [facility] in [place], [place]. He said he was hospitalized there for at least a month and he was discharged. [facility] He said that he has been treated medically. He believed that he received a dual-chamber AICD in about 2012. His slow progressive decline continued. He said he received three shocks in 2018. This occurred during sleep. The third shock caused him to fall off bed and also knocked his over too. He says since then he has been worsening at a much quicker rate. Now, he is fatigued all day. He sleeps as much he can all day. He only can walk about 25 yards due to severe shortness of breath. He cannot stand through a shower everyday. On some days, he needs to sit down. He has palpitations go with a minimal amount activity. He finds to be very difficult to work. 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 He only can mow yard one strip at a time and needs to stop and rest. He cannot walk uphill at all. Walking uphill will cause severe shortness of breath and chest pains. He also believes that he is not thinking as well. He has periods of "farrukh" mentation. He also complains of early satiety, he becomes full quite quickly and cannot eat much more. He said he only sleeps on one pillow. However, he gets up at every night between 11p.m. to 2:00 a.m., which is about 2 to 3 hours after falling asleep. When he gets up, he feels very short of breath and needing to sit on the side of bed to breathe. His also noted that too and he has been having every night. Last Friday, May 07, 2019, while at work, he developed burning chest pain. He said it radiated to both arms. Thus , he went to [facility]. Apparently, on admission, he had demonstrated positive troponin value that was rising. CT scan of the chest did not show any pulmonary embolism. Coronary angiogram done on May 10, 2019, did not show any significant coronary artery disease. Echocardiogram done on May 08, 2019, showed his left ventricular ejection fraction has decreased down to about 15% and the left ventricle is dilated to 6.15 cm. He has been receiving IV fluids at about 75 mL/h about his catheterization and also after his chest CT. PAST MEDICAL HISTORY: Significant for: 1. Heart failure with reduced ejection fraction. 2. Hypertension. 3. Ventricular tachycardia with paroxysmal ventricular tachycardia. 4. Chronic back pain. SOCIAL HISTORY: He smoked for three or four years, but stopped in year 2002. Alcohol, he drinks two beers per night. He denies any illicit drug use. He served in the [employer] for six years, starting from 1979. He currently works for [email or web address] in the [place]. FAMILY HISTORY: His biological father was unknown to him in terms of diseases. His mother has breast cancer, but she is surviving. His siblings do not have any cardiac diseases. REVIEW OF SYSTEMS: GENERAL: Very fatigued, but no fever or chills. HEENT: There is no change in vision, hearing, or swallowing. PULMONARY: He gets very short of breath with minimal amount of exertion. Please see HPI. CARDIAC: Please see HPI. This includes heart failure and palpitations. GI: He has early satiety. Please see HPI. : He said that he does not have any problem with urination. There is no dysuria. MUSCULOSKELETAL: Joint pains; he has chronic back pain, sometimes quite severe. INTEGUMENT: There is no new skin breakdown. Complaining of a rash. NEUROLOGIC: There are no focal deficits and there are no seizure-like symptoms. PSYCHIATRIC: He is currently not depressed. MEDICATIONS: His current cardiac medications include; 1. Carvedilol at 12.5 mg b.i.d. 2. Labetalol 10 mg p.r.n. 3. Nitroglycerin paste. PHYSICAL EXAMINATION: VITAL SIGNS: Telemetry was reviewed. He had at least one 7-beat run of wide-complex tachycardia, most likely to be V-tach. He also has some shorter runs and one longer run. Heart rate 60, blood pressure at 156/95. His prior systolic blood pressure was 174. GENERAL: He is alert and conversational, pleasant, not in any acute distress. HEENT: Show EOMI, PERRL. Oropharynx benign. There is no erythema, no exudate. NECK: His JVP is elevated about 12 cm with positive hepatojugular reflux. LUNGS: There is good air movement, clear to auscultation bilaterally. HEART: Regular rate and rhythm with occasional irregularity. There is 2/6 holosystolic murmur originating at the apex with radiation to the left axilla. There is also 2/6 systolic murmur at the left upper sternal border. ABDOMEN: Soft, nontender. Positive bowel sounds. EXTREMITIES: His lower extremity has some slight pitting edema around the feet. There is 2+ dorsalis pedis pulses bilaterally. LABORATORY DATA: Laboratory values for today are significant for creatinine has increased to 1.57. His bicarb is decreased down to 21. His catheterization on May 10, 2019, was reviewed. Left main, there was 0% occlusion. Left anterior descending artery. There is 0% occlusion. Left circumflex artery 0% occlusion. Right coronary artery 0% stenosis. Thus, he does not have active coronary artery disease. TTE which was done on May 08, 2019. Left ventricular internal diameter in diastole 6.15 cm. There is moderate concentric LVH. Left ventricular ejection fraction is 15%. Grade 3 diastolic dysfunction with restrictive filling pattern. His right ventricle is it is severely dilated. Right ventricle has moderate depressed function. There is tricuspid regurgitation. There is also mitral regurgitation. His right ventricle show moderate depressed function. There is no tricuspid regurgitation. ASSESSMENT: A 59-year-old gentleman has at least [place] Heart Association stage C and [place] Heart Association class 3B heart failure with reduced ejection fraction. He has both systolic and diastolic dysfunctions. It is nonischemic cardiomyopathy. He also has paroxysmal ventricular tachycardia. Comparisons of the echo, his ejection fraction has significantly decreased from 2015 to 2019. There is also very bad prognosis that he is leaking high amount of troponin I. However, his heart failure medication regimen needs to be maximized. On telemetry, he was right ventricularly paced a significant amount of time, thus, his pacemaker/AICD needs to be interrogated to see what percentage time he is being right ventricularly paced. Right ventricularly pacing will cause heart failure. The existence of the ventricular tachycardia and right ventricular dysfunction argue against consideration of left ventricular assist device. Deterioration of the heart function down to LVEF 15% over period of 4+ years with positive troponin and negative CAD suggests that heart transplant evaluation will be reasonable. In the meanwhile, we will need to optimize his medical regimen. Please see the following for recommendations. RECOMMENDATIONS: 1. Given additional carvedilol 12.5 mg by mouth now. 2. Increase carvedilol to 25 mg q.12 hours daily. 3. Add spironolactone 25 mg daily. 4. After settling down for about one day, please start Entresto at 24/26 combination by mouth every 12 hours.. 5. Please interrogated AICD to determine the amount of right ventricular pacing and arrhythmia burden. If there is significant percentage of right ventricular pacing, then his device needs to be upgraded from a dual-chamber AICD to cardiac resynchronization therapy. Please stop his IV fluids after 12 hours from catheterization. As shown by his JVP, he is now a bit volume overloaded. 6. His heart failure status and natural history of heart failure were discussed with the patient. Mr. Margarito Javed and his expressed moderate level of understanding. They do want to think about it. They want to re-discuss the options, then pick a location with the next visit. Currently, they are favoring [facility]. 7. We will up titrate his heart failure therapy along with setting up a referral to our heart transplant center that would fit patient's needs. It has been a pleasure taking care of Mr. Margarito Javed. If you have any questions, please give me a call. Job ID: [id number] [facility]
[2019-05-11 04:37] LABS: Anion Gap 12 mmol/L (10-20); BUN (Urea Nitrogen) 27 mg/dL (8.4-25.7); Calc. Creatinine Clearance 68 mL/min (70-130); Calcium 8.7 mg/dL (7.8-10.44); Carbon Dioxide 20 mmol/L (22-29); Chloride 108 mmol/L (98-107); Estimated GFR-MDRD 55; Glucose 87 mg/dL (70-105); Potassium 4.2 mmol/L (3.5-5.1); Sodium 136 mmol/L (136-145)
[2019-05-11 04:41] LABS: Troponin I 7.278 ng/mL (< 0.028)
[2019-05-11 05:18] LABS: ALT (SGPT) 20 U/L (8-55); AST (SGOT) 25 U/L (5-34); Albumin 3.2 g/dL (3.5-5.0); Alkaline Phosphatase 42 U/L (40-110); Anion Gap 13 mmol/L (10-20); BUN (Urea Nitrogen) 26 mg/dL (8.4-25.7); Bilirubin, Total 0.4 mg/dL (0.2-1.2); Calc. Creatinine Clearance 68 mL/min (70-130); Calcium 8.6 mg/dL (7.8-10.44); Carbon Dioxide 20 mmol/L (22-29); Chloride 108 mmol/L (98-107); Estimated GFR-MDRD 55; Globulin 2.7 g/dL (2.4-3.5); Glucose 84 mg/dL (70-105); Magnesium 1.7 mg/dL (1.6-2.6); Potassium 4.1 mmol/L (3.5-5.1); Protein, Total 5.9 g/dL (6.0-8.3); Sodium 137 mmol/L (136-145)
[2019-05-11] MEDS ORDERED: Spironolactone 25 MG TAB PO SCH (08:00)
[2019-05-11] MEDS: Aspirin 325 MG TAB PO SCH (09:05)
[2019-05-11] MEDS: Famotidine 20 MG TAB PO SCH (09:06)
--- NOTE | 2019-05-11 09:25 | PRG ---
DATE OF SERVICE: 05/11/2019 SERVICE: Advanced Heart Failure Consulting Service SUBJECTIVE: Mr. Margarito Javed had a good night. He tolerated increasing carvedilol without difficulty. He said that he did not have any more chest pains. He is breathing easy. He did not have any PND last night. He also said that he will like to be referred to [place], [place] for potential heart transplant evaluation. REVIEW OF SYSTEMS: GENERAL: There is no fever or chills. HEENT: There is no change in the vision, hearing, or swallowing. PULMONARY: See HPI. CARDIOVASCULAR: He denies any palpitation at this time. GI: He is able to eat without any problems. : He is able to urinate without difficulties. MUSCULOSKELETAL: He has chronic back pain. INTEGUMENT: There is no skin breakdown. NEUROLOGIC: There are no focal deficits. PSYCHIATRIC: He is not depressed. MEDICATIONS: His current cardiac medication regimen includes: 1. Carvedilol 25 mg q.12 hours. This was increased overnight. 2. Spironolactone 25 mg daily. 3. Aspirin 325 mg daily. 4. Nitroglycerin topical patch 1 inch. PHYSICAL EXAMINATION: Telemetry was reviewed. He has a combination of sinus rhythm and A-pacing. VITAL SIGNS: Currently, heart rate paced at 60, blood pressure 137/82. GENERAL: He is alert and conversational without any acute distress, sitting comfortably. HEENT: Show EOMI. Oropharynx is benign with moist mucosa. There is no erythema. No exudate. NECK: His JVP is elevated about 12 cm with positive hepatojugular reflux. PULMONARY: Good air movement. Clear to auscultation bilaterally. HEART: Regular rate and rhythm with 2/6 holosystolic murmur at the apex with radiation to the left axilla. ABDOMEN: Soft and nontender. Positive bowel sounds. EXTREMITIES: Lower extremity has 1+ pitting edema from the feet to 6 inches above his ankles. LABORATORY VALUES: Significant for: His BNP is 2359. His troponin has decreased down to 7.278. His creatinine although not normal is stable at 1.58. ASSESSMENT: A 59-year-old gentleman, resides in [place] Heart Association stage C, and [place] Heart Association Class IIIIB heart failure with reduced ejection fraction. He has both systolic and diastolic dysfunction. It is a nonischemic cardiomyopathy. He also has paroxysmal nonsustained ventricular tachycardia. Today, he is well compensated. He is also near euvolemia; however , his elevated JVP suggests that he is at least mildly volume overloaded. With ischemic cardiomyopathy with ejection fraction at 15%, he is not likely to recover. Thus, making a referral now will be preferred. RECOMMENDATIONS: 1. Asked [employer] credit resolution representative and also Dr. Markie Arellano to come by to adjusts his AICD to minimize ventricular pacing. Perhaps, consider upgrade to [employer] if possible. 2. Due to history and also recent nonsustained ventricular tachycardia seen on telemetry, please start amiodarone 200 mg b.i.d. 3. Start Entresto at combination starting tomorrow. 4. Per the patient's wishes, I will contact [facility] in [place] for potential hospital to hospital transfer. The patient's told me this morning, they would like to transfer to [place] for potential heart transplant evaluation. ADDENDUM: His dual chamber AICD was interrogated. He is only atrial paced when necessary. There is no significant RV pacing. Thus, no adjustment is needed. Job ID: [id number] MTDD
[2019-05-11 11:52] VITALS: BP 130/85; TEMP 97.7
--- NOTE | 2019-05-11 13:39 | DIS ---
DATE OF ADMISSION: 05/07/2019 DATE OF DISCHARGE: 05/11/2019 PRIMARY CARE PROVIDER: [facility] in [place]. DISCHARGE DIAGNOSES: 1. Nonischemic cardiomyopathy. 2. Acute on chronic systolic congestive heart failure, [place] Heart Association Class III. 3. Hypoalbuminemia. 4. Chronic kidney disease, stage 3. 5. Non-ST elevation myocardial infarction, type 2. CONSULTATIONS DURING THIS HOSPITALIZATION: 1. Cardiology, Dr. Turk. 2. Heart Transplant Service, Dr. Abdullahi. DISCHARGE MEDICATIONS: 1. Coreg 25 mg 2 times a day. 2. Amiodarone 200 mg 2 times a day. 3. Aspirin 325 mg daily. 4. Entresto 24/26 mg 2 times a day starting with the morning dose on May 12, 2019. 5. Spironolactone 25 mg daily. 6. DuoNeb p.r.n. 7. Acetaminophen p.r.n. 8. Tylenol No. 3 p.r.n. 9. Tessalon p.r.n. 10. Dulcolax p.r.n. 11. Calcium carbonate p.r.n. 12. Benadryl p.r.n. 13. [place] p.r.n. 14. Melatonin p.r.n. HOSPITAL COURSE: Mr. Javed is a pleasant 59-year-old gentleman, who was admitted to [facility] on May 07, 2019, for elevated troponins. Please refer to Dr. Bedoya's history and physical note dated May 07, 2019, for further details. He was seen by Cardiology Service. 2D echocardiogram showed left ventricular ejection fraction of 15% to 20%, mildly increased left ventricular size, moderately enlarged right ventricular cavity, mildly dilated left atrium, moderate mitral regurgitation, and [id number] tricuspid regurgitation. He underwent cardiac catheterization on May 10, 2019, and was found to have normal coronaries. He was evaluated by Heart Transplant Service. He is being discharged to [facility] for further management. On the day of discharge, he has sodium 137, potassium 4.1, creatinine 1.58, and magnesium 1.7. Many thanks for allowing me to participate in your patient's care. Please feel free to contact me with any questions or concerns. POST ACUTE CARE FOLLOWUP: With Cardiology, Dr. Turk, in 2 to 3 weeks. DISCHARGE DESTINATION: [facility] [place]. DIET: Heart-healthy and low-sodium. ACTIVITY: As tolerated. TIME SPENT: Total amount of time spent in coordinating this discharge: 32 minutes. Job ID: [id number] MTDD
--- NOTE | 2019-05-11 15:52 | PDOC.CPN ---
- Subjective Date: 05/11/19 Time: 08:30 Interval history: The pt seen and examined. No overnight events. No cardiac complaints. Had long conversation about option of heart transplant or going home with medical treatment only. - Objective Allergies/Adverse Reactions: Allergies Allergy/AdvReac Type Severity Reaction Status Date / Time No Known Drug Allergies Allergy Verified 05/07/19 15:25 Vital Signs & Weight: Vital Signs Temp Pulse Resp BP BP Pulse Ox 05/11/19 11:49 97.7 F 62 16 130/85 98 05/11/19 07:22 98.5 F 61 18 137/82 100 05/11/19 04:00 97.4 F L 60 18 158/90 H 99 Weight 212 lb - Physical Exam General: alert & oriented x3 HEENT: mucus membranes moist Neck: supple neck Cardiac: regular rate and rhythm, S1/S2 Lungs: clear to auscultation Neuro: cranial nerve 2-12 intact Extremities: no edema Musculoskeletal: normal range of motion - Labs Result Diagrams: 05/08/19 03:22 05/11/19 04:31 Troponin/CKMB CK-MB (CK-2) 5.6 ng/mL (0-6.6) 05/07/19 07:08 Troponin I 7.278 ng/mL (< 0.028) H* 05/11/19 03:33 - Telemetry Sinus rhythms and dysrhythmias: sinus rhythm - Assessment/Plan Assessment/Plan: 1. Nonischemic CMY - The pt will tx to [facility] for Heart transplant evaluation ; On AICD; Entresto will be started from yesterday; The pt may need BiV AICD per Dr Abdullahi 2. Acute on Chronic systolic HF - stable with RA; on Coreg, Aldactone, and Entresto 3. HTN - stable MAR reviewed * S/p LHC on 05/10/2019 with normal coronary arteries.
--- NOTE | 2019-05-11 16:09 | CON ---
DATE OF CONSULTATION: 05/11/2019 REASON FOR CONSULTATION: Evaluate his ICD, nonsustained ventricular tachycardia. HISTORY OF PRESENT ILLNESS: Mr. Javed is a pleasant 59-year-old male, who has a history of chronic systolic heart failure due to dilated nonischemic cardiomyopathy, [employer] Evera MRI XT DR dual-chamber ICD placed at the [facility] in [place] on August 31, 2015, and hypertension. He was admitted with acute exacerbation of chronic systolic heart failure. His troponins are elevated. Cardiac catheterization yesterday showed normal coronary arteries. He has moderate daily fatigue without exacerbating or alleviating factors. He has severe exertional dyspnea, which is improved with rest. He has had shocks in the past for ventricular tachycardia. His device is usually followed at the [facility] in [place]. PAST MEDICAL HISTORY: 1. Chronic systolic heart failure. 2. Hypertension. 3. Ventricular tachycardia. 4. Chronic back pain. FAMILY HISTORY: Unknown in relate to cardiac disease. SOCIAL HISTORY: No significant smoking history. Drinks two beers nightly. He works for [employer] in the [place]. REVIEW OF SYSTEMS: Positive for fatigue, exertional dyspnea, orthopnea, and edema. Negative for fever, chills, skin issues, or neurologic deficits. No psychiatric issues. Positive for early satiety. No dysuria. OUTPATIENT MEDICATIONS: 1. Carvedilol 12.5 mg b.i.d. 2. Labetalol p.r.n. 3. Nitroglycerin paste. PHYSICAL EXAMINATION: GENERAL: Alert and oriented x4, in no apparent distress. VITAL SIGNS: Blood pressure 156/95, pulse 60, and respiratory rate 12. HEENT: No lesions. Sclerae clear. SKIN: No lesions. CARDIOVASCULAR: Regular rate and rhythm. No murmurs, gallops, or rubs. LUNGS: Clear to auscultation bilaterally. Normal respiratory effort. EXTREMITIES: 1+ edema bilaterally. LABORATORY DATA: Creatinine 1.5. CARDIAC PROCEDURES: May 10, 2019, normal coronary arteries by catheterization. CARDIAC IMAGING: Echocardiogram 05/08/2019, mildly dilated left atrium. Ejection fraction 15% to 20%. Moderate mitral regurgitation. [id number] tricuspid regurgitation. Telemetry, nonsustained ventricular tachycardia up to 7 beats in duration. Interrogation of his ICD today by the [employer] community engagement representative shows a normally functioning dual-chamber ICD with normal sensing and thresholds. No arrhythmias. He paces 82% of time in the atrium, he is not significantly pacing the right ventricle. IMPRESSION: 1. Nonsustained ventricular tachycardia. 2. Acute exacerbation of chronic systolic heart failure. 3. Normal dual chamber implantable cardioverter-defibrillator function with no significant right ventricular pacing. RECOMMEND: 1. The patient's plan is to be transferred to [place] later today. 2. I have given my card, should he wish to follow up locally for his cardiac electrophysiology care, he will contact me. Otherwise, he will continue followup at the [facility] in [place]. Job ID: [id number]
--- NOTE | 2019-05-11 21:05 | EKG ---
Test Reason : Blood Pressure : / mmHG Vent. Rate : 061 BPM Atrial Rate : 061 BPM P-R Int : 238 ms QRS Dur : 100 ms QT Int : 466 ms P-R-T Axes : 041 -52 126 degrees QTc Int : 469 ms Atrial-paced rhythm with prolonged AV conduction Left anterior fascicular block Moderate voltage criteria for LVH, may be normal variant Nonspecific T wave abnormality Prolonged QT Abnormal ECG When compared with ECG of 07-MAY-2019 07:03, (Unconfirmed) Significant changes have occurred Confirmed by Porfirio HUMPHREYS ([id number]) on 05/11/2019 9:04:46 PM Referred By: PEDRO Confirmed By:Porfirio HUMPHREYS
== END 2019-05-11 14:20 | disposition short-term general hospital (02) | DRG 280 ==
LOC: ERS 06:54 → ERHOLD 13:03 → 2NO 15:13
PROVIDERS: ADMIT Internal Medicine; ATTEND Internal Medicine
PROC: 4A023N7 Measurement of Cardiac Sampling and Pressure, Left Heart, Percutaneous Approach (ICD-10-PCS; principal; 2019-05-07)
PROC: B2111ZZ Fluoroscopy of Multiple Coronary Arteries using Low Osmolar Contrast (ICD-10-PCS; 2019-05-07)
DX: I13.0 Hypertensive heart and chronic kidney disease with heart failure and stage 1 through stage 4 chronic kidney disease, or unspecified chronic kidney disease (principal); I50.23 Acute on chronic systolic (congestive) heart failure; I21.A1 Myocardial infarction type 2; N17.9 Acute kidney failure, unspecified; I47.2 Ventricular tachycardia; I42.8 Other cardiomyopathies; N18.3 Chronic kidney disease, stage 3 (moderate); I08.1 Rheumatic disorders of both mitral and tricuspid valves; G89.29 Other chronic pain; E78.00 Pure hypercholesterolemia, unspecified; I25.10 Atherosclerotic heart disease of native coronary artery without angina pectoris; Z95.810 Presence of automatic (implantable) cardiac defibrillator
CPT/HCPCS: 36415; 71045; 71275; 72191; 74175; 80048; 80053; 80061; 82553; 83735; 83880; 84484; 85025; 85730; 93005; 93010; 93306; 93458; 93798; 94760; 96372; 99152; 99153; C1769; J1644; J1650; J2001; J2250; Q9967

== ENCOUNTER 2019-10-14 03:08 | Emergency (ER) | payer OTHER ==
[2019-10-14] MEDS ORDERED: Lorazepam 2 MG/ML VIAL ONE (03:12)
[2019-10-14] MEDS ORDERED: Succinylcholine Chloride 20 MG/ML 10 ml SYRINGE FS ONE (03:18)
[2019-10-14] MEDS ORDERED: Magnesium 2 GM/50 ML BAG (IN WATER) ONE (03:22)
[2019-10-14] MEDS ORDERED: Amiodarone 150 MG/3 ML VIAL ONE (09:16)
[2019-10-14] MEDS ORDERED: Dextrose 50% Abboject 50 ML SYRINGE ONE (09:16)
[2019-10-14] MEDS ORDERED: EPINEPHrine 1 MG/10 ML Abboject SYRINGE ONE (09:16)
[2019-10-14 16:13] LABS: SARS-CoV-2 MS2 Positive; SARS-CoV-2 N Gene Negative; SARS-CoV-2 S Gene Negative; SARS-CoV-2 orf1ab Negative
== END 2019-10-14 03:29 | disposition expired ==
LOC: ERS 03:08
DX: I46.9 Cardiac arrest, cause unspecified (principal); I11.0 Hypertensive heart disease with heart failure; I50.9 Heart failure, unspecified
CPT/HCPCS: 31500; 36416; 87635; 92950; 96374; 96375; 96376; J0171; J0282; J2060; J3475; U0003